=== PATIENT | male | born 1935 | race Caucasian/White ===

== ENCOUNTER → 2017-04-04 | Outpatient (CLI) | payer MEDICARE ==
[~2017-04-04] VITALS: Ht 180.3 cm; Wt 95.3 kg
[~2017-04-04] MED LIST: ASPIRIN81 M2 PO; ATENOLOL 50MG T50 MG PO; ATORVASTATIN CA40 MG PO; COD LIVER OIL1 EAC4 PO; D3 + K2 DOTS 11 EACH PO; FISH OIL 1,001000 M2 PO; METFORMIN HCL500 MG PO; OMEPRAZOLE 20 M20 M1 PO; PROZAC20 MG PO; SIMVASTATIN40 MG PO; UNICOMPLEX M TA1 TA1 PO
[2017-04-04 09:01] VITALS: BP 135/70
[2017-04-04 09:01] LABS: HEMATOCRIT 44.6 % (42.0-52.0); HEMOGLOBIN 15.2 gm/dL (14.0-18.0); MCH 30.3 pg (26.0-34.0); MCV 89.2 fL (80.0-100.0); MPV 8.6 fl. (7.2-11.1); RDW-CV 13.7 % (10.5-14.5); WBC 11.4 thou/uL (4.0-11.0)
[2017-04-04 09:09] LABS: APTT 28.7 Seconds (25.0-31.3); INR 1.1; PROTIME 10.3 Seconds (9.20-11.50)
[2017-04-04 09:56] LABS: ALBUMIN 3.4 g/dL (3.4-5.0); ALKALINE PHOSPHATASE 60 U/L (46-116); ANION GAP 6 mmol/L (7-16); BUN 22 mg/dL (7-18); CALCIUM 8.6 mg/dL (8.5-10.1); CHLORIDE 104 mmol/L (98-107); CHOLESTEROL 133 mg/dL (<200); CO2 26 mmol/L (21-32); CREATININE 1.1 mg/dL (0.6-1.3); GLUCOSE 145 mg/dL (70-99); HDL CHOLESTEROL 33 mg/dL (>40); LDL CHOLESTEROL 51 mg/dL (<100); POTASSIUM 4.4 mmol/L (3.5-5.1); SGOT 22 U/L (15-37); SGPT 32 U/L (30-65); SODIUM 136 mmol/L (136-145); TOTAL BILIRUBIN 0.5 mg/dL (<0.1-1.0); TOTAL PROTEIN 6.9 g/dL (6.4-8.2); TRIGLYCERIDE 248 mg/dL (<150); VLDL 50 mg/dL (<40)
[2017-04-04 09:58] LABS: SERUM ASSESSMENT Clear
[2017-04-04 10:40] VITALS: BP 122/71
[2017-04-04 11:31] VITALS: BP 122/71
[2017-04-04 12:09] VITALS: BP 122/71
[2017-04-04 12:32] VITALS: BP 122/71
--- NOTE | 2017-04-04 13:22 | H ---
[address] [address] HISTORY AND PHYSICAL Name: ANALIA SMART Room: [facility]#: [id number] Admission: 04/04/17 Attend Phys: Kvng Durham MD Discharge: Date of : 37 Report #: [id number] THIS REPORT FOR: //name// CC: Kip Rivas INDICATION: Dyspnea and abnormal CV functional study. HISTORY OF PRESENT ILLNESS: The patient is a very pleasant 81-year-old gentleman with history of coronary artery disease. By catheterization remotely this was felt to be nonocclusive. Recently, he has been having increasing dyspnea on exertion, requiring him to stop and rest. A stress test in the interim suggested basal lateral ischemia. He has preserved left ventricular systolic function by this noninvasive study. He is being brought to the hospital today for elective left heart catheterization and coronary angiography. CARDIAC RISK FACTORS: Include hypertension and hyperlipidemia for which he is on medication. PAST MEDICAL HISTORY: 1. Coronary artery disease by catheterization in 2009. 2. Hypertension. 3. Hyperlipidemia. 4. Type 2 diabetes mellitus. PAST SURGICAL HISTORY: 1. Coccygectomy. 2. Rotator cuff surgery bilaterally. 3. Sinus surgery. 4. Total knee arthroplasty. FAMILY HISTORY: The patient's father had heart disease at an older age. The patient's mother had hypertension and heart disease at an older age. SOCIAL HISTORY: The patient is a former smoker, but quit remotely. He does not drink alcohol. ALLERGIES: MORPHINE and PENICILLIN. CURRENT MEDICATIONS: Aspirin 81 mg daily, atenolol 50 mg one-half tablet b.i.d., vitamin D3 1000 units daily, glimepiride 2 mg daily, metformin 500 mg b.i.d., multivitamin 1 tablet daily, omega 3 fatty acid 1200 mg daily, omeprazole 40 mg daily, Zocor 40 mg daily. REVIEW OF SYSTEMS: GENERAL: He denies convulsions, seizures or focal paralysis. In [place], [place] [address] HISTORY AND PHYSICAL Name: ANALIA SMART Room: [facility]#: [id number] Admission: 04/04/17 Attend Phys: Kvng Durham MD Discharge: Date of : 37 Report #: [id number] is no unexplained weight loss or fever. RESPIRATORY: He is without cough, shortness of breath. He does have dyspnea. He denies underlying lung disease. CARDIOVASCULAR: He denies chest pain. He is not having palpitations. He is without orthopnea. He denies edema. He denies murmur. GASTROINTESTINAL: No nausea, vomiting, hematemesis, melena, hematochezia, jaundice, or hepatitis. GENITOURINARY: No dysuria or hematuria. HEMATOLOGIC AND LYMPHATIC: He denies any history of anemia, bleeding disorder or cancer. ALLERGY AND IMMUNOLOGIC: He has medical allergies outlined above. PSYCHIATRIC: No depression or anxiety. MUSCULOSKELETAL: He has arthritis without connective tissue disease. SKIN: No recent rashes, hives or skin conditions. EYES: He does wear glasses. He has no acute loss in vision. EARS, NOSE, MOUTH, THROAT: He denies epistaxis. He has decreased hearing. PHYSICAL EXAMINATION: VITAL SIGNS: Stable. Blood pressure 132/68, pulse is 75 and regular. GENERAL: This is a pleasant, moderately obese gentleman in no distress. Mood and affect appropriate. HEENT: The patient wears glasses. Extraocular muscles intact. Mucous membranes are moist. NECK: Shows no jugular venous distention. There are no carotid bruits. CHEST: Reveals clear lung chiang without wheezes, rales or rhonchi. CARDIOVASCULAR: Reveals regular rhythm with no murmur or gallop. ABDOMEN: Reveals normal bowel sounds. The abdomen is soft and nontender. EXTREMITIES: Shows no clubbing, cyanosis or edema. Peripheral pulses 2+ and easily palpable. SKIN: Warm and dry. IMPRESSION AND RECOMMENDATIONS: 1. Progressive dyspnea with abnormal CV functional study. The patient is being brought in for left heart catheterization and coronary angiography to evaluate extent of underlying coronary artery disease. 2. Coronary artery disease. Continue daily aspirin. 3. Hypertension. The patient's blood pressure adequately controlled on current regimen of atenolol. 4. Mixed hyperlipidemia. Continue simvastatin. The patient has been at goal on this dose. 5. Type 2 diabetes mellitus. The patient to hold metformin [place] [address] HISTORY AND PHYSICAL Name: SMARTANALIA Room: [facility]#: [id number] Admission: 04/04/17 Attend Phys: Kvng Durham MD Discharge: Date of : 37 Report #: [id number] and resume in 48 hours. We will continue glimepiride at current dose. Otherwise, per primary physician. <ELECTRONICALLY SIGNED> By: Kvng Durham MD, FACC 04/04/17 1322 0949 1017[facility] MD, FACC /nt
--- NOTE | 2017-04-04 20:08 | CARD ---
[address] [address] CARDIAC CATH REPORT Name: ANALIA SMART Room: [facility]#: [id number] Admission: 04/04/17 Attend Phys: Kvng Durham MD Discharge: Date of : 37 Report #: [id number] THIS REPORT FOR: //name// APPROVED REPORT Patient Details Patient Status: Out-Patient Room #: The patient is a 81 year-old male Event Personnel Kvng Durham Federal Air Marshal, Joyce Goode RN RN, Pravin Mason (Robin) [place] James Monitor Procedure Narrative A Slender Glidesheath sheath was inserted into the . Coronary angiography was performed using coronary diagnostic catheters. The right coronary system was accessed and visualized with a 3DRC 5fr catheter. The left coronary system was accessed and visualized with a DCR: [place] 4.0 5fr catheter. The left ventricle was accessed and visualized with a PC: Angled Pig 5fr catheter. The patient tolerated the procedure well and there were no complications associated with the procedure. Intraoperative Conscious Sedation Sedation start time: 1005 Case end Time: 1025 Fentanyl 50 mcg Versed 2 mg Fluoro Time: 7.4 minutes Dose: DAP 417047 cGycm2 1520 mGy Contrast Type and Amount: Visipaque 135 ml Coronary Angiography The patient's coronary anatomy is right dominant. Diagnostic Cath Left Main Normal. LAD 30% narrowed proximally, 40% narrowed in its midportion. Diagonal 1 40% proximal narrowing. Diagonal 2 Normal. Circumflex 10% narrowing proximally. Normal its mid and distal portion. OM1 50% proximal narrowing. Right Coronary 10% narrowing in its proximal, [place] [address] CARDIAC CATH REPORT Name: ANALIA SMART Room: [facility]#: [id number] Admission: 04/04/17 Attend Phys: Kvng Durham MD Discharge: Date of : 37 Report #: [id number] portions. R PDA 10% narrowing proximally. RPLV 10% narrowing in its midportion. Left Ventriculography The left ventricular ejection fraction is estimated to be 60%. Left ventricular wall motion abnormalities are not present. Hemodynamics The aortic pressure is 97/56 mmHg with a mean of 76 mmHg. The left ventricular pressure is 92/0 mmHg with a mean of mmHg. The left ventricular end diastolic pressure is 6 mmHg. Conclusion 1. Nonocclusive coronary artery disease as outlined above area 2. Normal left ventricular systolic function. 3. Normal left ventricular end-diastolic pressure. Recommendations 1. Continue aggressive risk factor modification. <ELECTRONICALLY SIGNED> By: Kvng Durham MD, [facility] 04/04/172006 06 Cecilia Durham MD, FACC /INF
== END | disposition home or self-care (01) ==
LOC: M.CL 08:25
PROVIDERS: Internal Medicine Cardiovascular Disease
DX: I25.10 Atherosclerotic heart disease of native coronary artery without angina pectoris (principal); I10 Essential (primary) hypertension; E11.9 Type 2 diabetes mellitus without complications; E78.5 Hyperlipidemia, unspecified; Z98.890 Other specified postprocedural states; Z79.899 Other long term (current) drug therapy; Z79.82 Long term (current) use of aspirin; Z87.891 Personal history of nicotine dependence; Z82.49 Family history of ischemic heart disease and other diseases of the circulatory system; Z88.0 Allergy status to penicillin; Z88.6 Allergy status to analgesic agent; Z79.01 Long term (current) use of anticoagulants

== ENCOUNTER → 2018-04-24 | Outpatient (CLI) | payer MEDICARE ==
[~2018-04-24] VITALS: Ht 180.3 cm; Wt 96.2 kg
[2018-04-24] VITALS (7 sets, daily range): BP systolic 121–142; BP diastolic 58–75
[~2018-04-24] MED LIST changes: +AMARYL2 MG PO; +ATENOLOL 25 MG25 M1 PO; +ATENOLOL 50MG T50 M1 PO
[2018-04-24 08:53] LABS: HEMOGLOBIN 14.2 gm/dL (14.0-18.0); MCH 30.8 pg (26.0-34.0); MCHC 33.9 g/dL (28.0-37.0); MCV 90.8 fL (80.0-100.0); MPV 8.9 fl. (7.2-11.1); RBC 4.62 mil/uL (4.50-6.00); WBC 11.6 thou/uL (4.0-11.0)
[2018-04-24 09:02] LABS: APTT 30.6 Seconds (25.0-31.3); PROTIME 10.1 Seconds (9.20-11.50)
[2018-04-24 09:14] LABS: ALBUMIN 3.7 g/dL (3.4-5.0); ALKALINE PHOSPHATASE 59 U/L (46-116); ANION GAP 8 mmol/L (7-16); BUN 22 mg/dL (7-18); CALCIUM 9.1 mg/dL (8.5-10.1); CHLORIDE 100 mmol/L (98-107); CHOLESTEROL 157 mg/dL (<200); CO2 29 mmol/L (21-32); CREATININE 1.2 mg/dL (0.6-1.3); GLUCOSE 170 mg/dL (70-99); HDL CHOLESTEROL 42 mg/dL (>40); LDL CHOLESTEROL 70 mg/dL (<100); POTASSIUM 3.8 mmol/L (3.5-5.1); SERUM ASSESSMENT Clear; SGOT 17 U/L (15-37); SGPT 31 U/L (30-65); SODIUM 137 mmol/L (136-145); TC:HDL 3.7 Ratio (Not establshd); TOTAL BILIRUBIN 0.5 mg/dL (<0.1-1.0); TOTAL PROTEIN 7.6 g/dL (6.4-8.2); TRIGLYCERIDE 229 mg/dL (<150); VLDL 46 mg/dL (<40)
--- NOTE | 2018-04-24 13:00 | EKG ---
[place] [address] ELECTROCARDIOGRAM REPORT Name: BERRYANALIA SACHINLINDA Room: [facility]#: [id number] Admission: 04/24/18 Attend Phys: Kvng Durham MD Discharge: Date of : 37 Report #: [id number] THIS REPORT FOR: //name// [facility] Test Date: 2018-04-24 Test Time: 09:24:33 Pat Name: ANALIA SMART Department: Room: Gender: M Network Technical Analyst: : 1935 Requested By: Kvng Durham Order Number: [id number] Jean Carlos NAYAK: Ben Dykes Measurements Intervals [place] Rate: 65 P: 17 SD: 152 QRS: -57 QRSD: 105 T: -38 QT: 414 QTc: 431 Interpretive Statements Sinus rhythm Left anterior fascicular block Abnormal R-wave progression, early transition Borderline repolarization abnormality Baseline wander in lead(s) I,III,aVL No previous ECG available for comparison Electronically Signed On 04-24-2018 12:59:55 WEBSPHERE ARCHITECT by Ben Dykes [email or web address] <ELECTRONICALLY SIGNED> By: Ben Dykes MD, [facility] 04/24/18 1259 0924 0924 Ben Dykes MD, [facility] /EPI
--- NOTE | 2018-05-01 17:41 | CARD ---
[address] [address] CARDIAC CATH REPORT Name: ANALIA SMART Room: [facility] ROSAMARIA Brewer#: [id number] Admission: 04/24/18 Attend Phys: Kvng Durham MD Discharge: Date of : 37 Report #: [id number] THIS REPORT FOR: //name// APPROVED REPORT Study performed: 04/24/2018 11:33:42 Patient Details Patient Status: Out-Patient Room #: Event Personnel Cardilogist Kvng Durham, Mecca Miguel RN, Axel WELLS, Soo Hankins RTR Procedures Performed Left heart catheterization and coronary angiography., Left ventriculography. Procedure Narrative The patient was brought electively to the Cardiac Catheterization Laboratory and was prepped and draped in a sterile manner. The right wrist was infiltrated with 2% Lidocaine subcutaneous anesthesia. A 6Fr Slender Glidesheath sheath was inserted into the right radial artery. Coronary angiography was performed using coronary diagnostic catheters. The right coronary system was accessed and visualized with a Diagnostic 6Fr 4.0 [place] catheter. The left coronary system was accessed and visualized with a Diagnostic 6Fr 4.0 [place] catheter. The left ventricle was accessed and visualized with a Diagnostic 6Fr angled pigtail catheter. Hemostasis was obtained with manual pressure following sheath removal without any complications. The patient tolerated the procedure well and there were no complications associated with the procedure. Intraoperative Conscious Sedation Sedation start time: 1139 Case end Time: 1152 Fentanyl 50.0 mcg Versed 2.0 mg Fluoro Time: 4.3 minutes Dose: DAP 33161 cGycm2 102 mGy Contrast Type and Amount: 100 Coronary Angiography The patient's coronary [place] [address] CARDIAC CATH REPORT Name: ANALIA SMART Room: [facility]#: [id number] Admission: 04/24/18 Attend Phys: Kvng Durham MD Discharge: Date of : 37 Report #: [id number] Diagnostic Cath Left Main Normal LAD 10% plaquing proximally. 40% plaquing in the midportion. 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 The distal vessel is free of significant disease. Diagonal 1 10% plaque proximally. Diagonal 2 Normal. Circumflex 10% plaquing proximally. OM1 Sujata branch vessel 10% plaque proximally prior to the branch. Right Coronary Large in caliber 20% plaque proximally in the midportion and distally. R PDA Normal. RPLV Normal Sujata branch. Left Ventriculography The left ventricle is normal in size with normal contractility. The left ventricular ejection fraction is estimated to be 60-65%. Hemodynamics The left ventricular pressure is 132/81 mmHg with a mean of 104 mmHg. The left ventricular end diastolic pressure is 15 mmHg. There was no gradient across the aortic valve upon pullback. Conclusion 1. Mild nonocclusive coronary artery disease as outlined above. 2. Normal left ventricular end-diastolic pressure. 3. Normal left ventricular systolic function by ventriculography. Recommendations 1. Continue current medical management and aggressive risk factor modification. <ELECTRONICALLY SIGNED> By: Kvng Durham MD, FACC 05/01/18 [id number] 1740Mictomas Durham MD, FACC /INF
== END | disposition home or self-care (01) ==
LOC: M.CL 08:12
PROVIDERS: Internal Medicine Cardiovascular Disease
DX: I25.10 Atherosclerotic heart disease of native coronary artery without angina pectoris (principal); I10 Essential (primary) hypertension; E78.5 Hyperlipidemia, unspecified; E11.9 Type 2 diabetes mellitus without complications; Z79.82 Long term (current) use of aspirin; Z79.899 Other long term (current) drug therapy; Z79.01 Long term (current) use of anticoagulants; Z98.890 Other specified postprocedural states; Z88.8 Allergy status to other drugs, medicaments and biological substances

== ENCOUNTER 2018-06-14 14:51 | Inpatient (IN) | payer MEDICARE ==
[~2018-06-14] VITALS: Ht 180.3 cm; Wt 100.7 kg
[~2018-06-14 14:51] MED LIST changes: -ATENOLOL 25 MG25 M1 PO
[2018-06-14 18:25] VITALS: BP 184/86
[2018-06-14] MEDS ORDERED: ATENOLOL 25 MG25 M1 PO (18:42)
[2018-06-14 19:15] VITALS: BP 132/71; BP 141/74
--- NOTE | 2018-06-14 19:30 | NUR ---
PT AOX4, UP AD SUJIT, O2 SAT 90'S RA.IV ACCESS INTACT. LAST BM 06/14/18. PT FOR ACCU CHECK PT. DIRECT ADMIT FROM [facility]. ADMISSION ASSESSMENT DONE. ORIENTED, GET SITUATED TO ROOM. VSS, ASSESSMENT CHARTED. CALL LIGHT WITHIN REACH. GIVE REPORT TO LORNI AMAYA. WILL CONTINUE TO MONITOR
--- NOTE | 2018-06-14 19:38 | NUR ---
I HAVE REVIEWED AND AGREE WITH THE CHARTING AND NOTE OF JORDAN Concepcion RN ON 06/14/18
[2018-06-14 20:02] LABS: HEMATOCRIT 40.8 % (42.0-52.0); HEMOGLOBIN 13.7 gm/dL (14.0-18.0); MCH 31.4 pg (26.0-34.0); MCHC 33.5 g/dL (28.0-37.0); MCV 93.6 fL (80.0-100.0); RBC 4.36 mil/uL (4.50-6.00); RDW-CV 13.7 % (10.5-14.5); WBC 7.8 thou/uL (4.0-11.0)
[2018-06-14 20:32] LABS: ANION GAP 11 mmol/L (7-16); BUN 19 mg/dL (7-18); CALCIUM 9.1 mg/dL (8.5-10.1); CHLORIDE 105 mmol/L (98-107); CO2 25 mmol/L (21-32); CREATININE 1.1 mg/dL (0.6-1.3); GLUCOSE 142 mg/dL (70-99); MAGNESIUM 1.5 mg/dL (1.8-2.4); POTASSIUM 4.1 mmol/L (3.5-5.1); SODIUM 141 mmol/L (136-145); TROPONIN-I LEVEL <0.06 ng/mL (<0.06)
[2018-06-15] VITALS (7 sets, daily range): BP systolic 117–166; BP diastolic 56–82
--- NOTE | 2018-06-15 02:21 | NUR ---
INITIAL ASSESSMENT COMPLETED CHARTED. VSS. TRACING SR - BIGEMINY ON MONITOR. PT HR WILL OCCASIONALLY SLOW TO THE 40'S AND WILL REBOUND BACK TO THE 70-80'S RANGE QUICKLY. PT DENIES PAIN OR SOA CURRENTLY AND AT TIME OF ASSESSMENT. PT UP ADLIB WITH STEADY GAIT. NO NEW CONCERNS. HOURLY ROUNDING IN PLACE. CLWR.
--- NOTE | 2018-06-15 11:32 | NUR ---
CM completed initial assessment to discuss d/c plan. pt A&Ox4. present at time of discussion. pt active & independent w/ADLs. NO DME. NO hx w/SNF. No hx w/HH. Pt has good family support. No anticipated needs at this time. CM to remain available to assist as needed.
--- NOTE | 2018-06-15 19:04 | NUR ---
06/15 Days: Patient being discharged home. Discharge completed. Instructions given. Questions answered. Vitals stable. Patient feels good. Hospitalist informed and in agreeance with Cardiology with discharge.
--- NOTE | 2018-06-18 13:43 | CON ---
[address] [address] CONSULTATION Name: BERRYANALIA ESTRADA Room: [address] IN M.R.#: [id number] Admission: 06/14/18 Attend Phys: Maribel Watkins Discharge: 06/15/18 Date of : 37 Report #: [id number] THIS REPORT FOR: //name// CC: Kip Ulrich DO Karlos Lazo DATE OF SERVICE: 06/15/2018 INDICATION: Symptomatic bradycardia. HISTORY OF PRESENT ILLNESS: The patient is a very pleasant 82-year-old gentleman with history of nonocclusive coronary artery disease by catheterization. His risk factors include dyslipidemia, hypertension and type 2 diabetes mellitus. He has been having progressive dyspnea and weakness for some time. Yesterday, he was at outside hospital and noted to have a pulse rate of 40. In this setting, he was having significant fatigue and dyspnea. The patient was transferred to [facility] for further evaluation. The patient continues to have episodes of symptomatic bradycardia. He is not having any chest pain. He is without other cardiac complaint at this time. PAST MEDICAL HISTORY: 1. Coronary artery disease. 2. Hypertension. 3. Hyperlipidemia. 4. Type 2 diabetes mellitus. PAST SURGICAL HISTORY: 1. Coccygectomy. 2. Rotator cuff surgery bilaterally. 3. Sinus surgery. 4. Total knee arthroplasty. FAMILY HISTORY: The patient's father had heart disease at an older age. The patient's mother had hypertension and heart disease at an older age. SOCIAL HISTORY: The patient quit smoking many years ago. He does not drink alcohol. ALLERGIES: MORPHINE AND PENICILLIN. HOME MEDICATIONS: Aspirin 81 mg daily, atenolol 50 mg daily, vitamin D 1000 mg daily, fish oil 1000 mg daily, Prozac 20 mg daily, Amaryl 2 mg daily, metformin 500 mg b.i.d., multivitamin 1 tablet daily, omeprazole 40 mg daily, probiotic one tablet daily, simvastatin [place] [address] CONSULTATION Name: ANALIA SMART Room: [address] IN M.R.#: [id number] Admission: 06/14/18 Attend Phys: Maribel Watkins Discharge: 06/15/18 Date of : 37 Report #: [id number] REVIEW OF SYSTEMS: Positive for fatigue, dyspnea, joint pain. Medical allergies as outlined above. Otherwise, 14-point review of systems was unremarkable. PHYSICAL EXAMINATION: VITAL SIGNS: Blood pressure 132/86, pulse 40. GENERAL: This is a pleasant gentleman in no distress. Mood and affect appropriate. HEENT: The patient is wearing glasses. Extraocular muscles intact. Mucous membranes are moist. NECK: Shows no jugular venous distention. No carotid bruits. CHEST: Reveals clear lung chiang without wheezes or rales. CARDIOVASCULAR: Reveals a regular rhythm that is slow. I do not appreciate gallop or murmur. ABDOMEN: Reveals normal bowel sounds. The abdomen is soft, nontender. EXTREMITIES: Shows no edema. Peripheral pulses 2+ and palpable. SKIN: Dry. LABORATORY DATA: EKG on admission shows a sinus rhythm with PVCs in a pattern of bigeminy. No acute ST or T-wave abnormalities are noted. Labs are reviewed. Electrolytes within normal limits. BUN 19, creatinine 1.1, serum glucose 142. Troponin less than 0.06. IMPRESSION AND RECOMMENDATIONS: 1. Symptomatic bradycardia. Plan, permanent pacemaker placement today. 2. Coronary artery disease, presently stable. He is not having angina. Continue daily aspirin. 3. Hyperlipidemia. Continue current statin agent. 4. Diabetes per primary physician. <ELECTRONICALLY SIGNED> By: Kvng Durham MD, FACC 06/18/18 1343 1000 [id number] Cent[facility]omas [facility] MD, FACC /nt
--- NOTE | 2018-06-28 16:17 | CARD ---
[address] [address] CARDIAC CATH REPORT Name: ANALIA SMART [facility]: [facility] M.R.#: [id number] Admission: 06/14/18 Attend Phys: Maribel Watkins Discharge: 06/15/18 Date of : 37 Report #: [id number] THIS REPORT FOR: //name// ADDENDUM APPROVED REPORT Study performed: 06/15/2018 15:43:00 Patient Status: In-Patient Room #: 229 Event Personnel: Kvng Durham Chicken Buyer, Katherine Bello Regulator Tester, Pravin Mason (R) Monitor, Axel Hernandez CARE TRANSITION COORDINATOR Scrub Exam: Insertion of Dual Chamber Permanent Pacemaker Indications: 2:1 AV Block The patient is a 82 year-old male with a history of Second degree AV block. Conscious Sedation Start time: 1630 End Time: 1706 Fentanyl 50 mcg Versed 2 mg Implanted Devices: Biotronik Eluna 8 DRT pro-MRI, model #550784, serial #[id number] dual-chamber pacing generator. Biotronik Solia S, model #233901, serial #[id number] ventricular lead. Biotronik Solia S 53, model #407665, serial #[id number] atrial lead. Procedure The patient underwent informed consent. We discussed the details of the procedure including the risks, which include, but not limited to bleeding, infection, vascular damage, cardiac perforation, and pneumothorax. He understood these risks and was willing to proceed. As such, he was brought to the EP/Cardiac Catheterization laboratory in a fasting and sedated state and prepped and draped in a sterile fashion, received IV antibiotics prior to initiation of the procedure and a venogram was performed showing patency of the left axillary vein. The patient underwent conscious sedation, with no related complications. The patient was brought to the EP/Cardiac Catheterization laboratory and the left chest and shoulder were prepped and draped in a sterile manner. During this case, Fluoroscopy and visipaque 10cc [place] [address] CARDIAC CATH REPORT Name: ANALIA SMART Room: [address] IN [facility].#: [id number] Admission: 06/14/18 Attend Phys: Maribel Watkins Discharge: 06/15/18 Date of : 37 Report #: [id number] The left subclavian region was infiltrated with 2% Lidocaine subcutaneous anesthesia. A transverse incision was made in the left upper chest cavity. The subcutaneous pocket was formed via blunt dissection. Percutaneous venous access was achieved and an introducer sheath was inserted into the left Subclavian vein. Through the introducer sheaths the atrial and ventricular lead wires were positioned in the right atrial appendage and right ventricular apex respectively. Capturing and sensing thresholds were verified. Electrode Parameters P Wave: 3.20 mV R Wave: 9.70 mV Atrial Threshold: 1.2 V at 0.40 ms Ventricular Threshold: 0.6 V at 0.40 ms Atrial Resistance: 526 ohms Ventricular Resistance: 760 ohms Mode DDD/CLS. Lower pacing rate 60 bpm. Upper tracking rate 130 bpm. Dual Chamber The atrial and ventricular leads were then secured using 0 silk sutures. The subcutaneous pocket was irrigated with ancef antibiotic solution.The atrial and ventricular leads were attached to the appropriate receptacles on the pulse generator and set screws firmly tightened to insure adequate contact and stability. The lead and pulse generator were placed into the subcutaneous pocket. Sharp and sponge counts were confirmed to be correct. At this time the pocket was closed subcutaneously with a 2.0 Vicryl and the skin was closed with a 4.0 Vicryl. The operative site was dressed in sterile fashion with steri strips and the patient was transferred to the floor in stable condition. Complications The patient tolerated the procedure well and there were no complications associated with the procedure. Conclusion 1. Second degre AV block. 2. Successful placement of a dual-chamber pacemaker with atrial and ventricular [place] [address] CARDIAC CATH REPORT Name: ANALIA SMART Room: [facility] IN M.R.#: [id number] Admission: 06/14/18 Attend Phys: Maribel Watkins Discharge: 06/15/18 Date of : 37 Report #: [id number] 1. Follow-up site check in one week. 2. Follow-up device interrogation one month. <ELECTRONICALLY SIGNED> By: Kvng Durham MD, FACC 06/28/18 1616 [id number] 1616Michaeleda Durham MD, FACC /INF
== END 2018-06-15 19:12 | disposition home or self-care (01) | DRG 244 ==
LOC: M.2W 14:51
PROVIDERS: ADMIT Internal Medicine
PROC: 0JH606Z Insertion of Pacemaker, Dual Chamber into Chest Subcutaneous Tissue and Fascia, Open Approach (ICD-10-PCS; principal; 2018-06-15)
PROC: 02H63JZ Insertion of Pacemaker Lead into Right Atrium, Percutaneous Approach (ICD-10-PCS; principal; 2018-06-15)
PROC: 02HK3JZ Insertion of Pacemaker Lead into Right Ventricle, Percutaneous Approach (ICD-10-PCS; principal; 2018-06-15)
DX: R00.1 Bradycardia, unspecified (principal); I25.10 Atherosclerotic heart disease of native coronary artery without angina pectoris; Z96.652 Presence of left artificial knee joint; E83.42 Hypomagnesemia; I10 Essential (primary) hypertension; E78.5 Hyperlipidemia, unspecified; E11.9 Type 2 diabetes mellitus without complications; Z82.49 Family history of ischemic heart disease and other diseases of the circulatory system; Z87.891 Personal history of nicotine dependence; Z88.6 Allergy status to analgesic agent; Z88.0 Allergy status to penicillin; Z85.46 Personal history of malignant neoplasm of prostate

== ENCOUNTER 2018-12-31 08:36 | Inpatient (IN) | payer MEDICARE ==
[2018-12-31] VITALS (15 sets, daily range): BP systolic 92–126; BP diastolic 55–99
[~2018-12-31] VITALS: Ht 180.3 cm; Wt 97.6 kg
--- NOTE | ~2018-12-31 | H ---
[address] [address] HISTORY AND PHYSICAL Name: ANALIA SMART Room: [address] IN M.R.#: [id number] Admission: 12/31/18 Attend Phys: Fredis Brown MD, F Discharge: 01/02/19 Date of : 37 Report #: [id number] THIS REPORT FOR: //name// Please refer to the History and Physical performed in the physician's office. By: [id number] Records Staff JORGE /PAPA
[~2018-12-31 08:36] MED LIST changes: +ATENOLOL 25 MG25 M1 PO
[2018-12-31 09:58] LABS: HEMATOCRIT 41.1 % (42.0-52.0); HEMOGLOBIN 13.9 gm/dL (14.0-18.0); MCH 30.8 pg (26.0-34.0); MCHC 33.9 g/dL (28.0-37.0); MCV 90.9 fL (80.0-100.0); MPV 8.2 fl. (7.2-11.1); RBC 4.52 mil/uL (4.50-6.00); RDW-CV 12.9 % (10.5-14.5)
[2018-12-31 10:06] LABS: CREATININE 1.2 mg/dL (0.6-1.3); POTASSIUM 4.4 mmol/L (3.5-5.1)
[2018-12-31] MEDS ORDERED: TOPROL XL100 MG (10:15)
[2018-12-31] MEDS ORDERED: XARELTO20 MG PO (10:27)
[2018-12-31] MEDS ORDERED: EFFEXOR XR75 MG (10:34)
--- NOTE | 2018-12-31 15:35 | NUR ---
PT RECEIVED FROM [employer]LE[employer] SYSTEMS MODELER AT 1430, PT HAD CARDIOVERSION. PT AOX4, UP SBA, O2 SAT 90'S RA. PT DENIES PAIN. TRACING SR ON TELE. PT HAS PACEMAKER. ADMISSION ASSESSMENT CHARTED. GET SITUATED TO ROOM, ON 2 GRAM SODIUM DIET. LAST BM TODAY. VSS, CALL LIGHT WITHIN REACH, CALL LIGHT WITHIN REACH, WILL CONTINUE TO MONITOR.
[2019-01-01] VITALS (7 sets, daily range): BP systolic 113–138; BP diastolic 67–75
--- NOTE | 2019-01-01 05:01 | NUR ---
ASSUMED CARE OF PT AT 1900. PT IS ALERT AND ORIENTED. VSS. PERRLA. NO COMPLAINTS OF PAIN. PT IS IN SINUS RYTHM ON THE TELEMETRY. PT IS RESTING COMFORTABLY IN BED. RESPIRATIONS ARE EVEN AND NONLABORED. WILL CONTINUE TO MONITOR PT.
--- NOTE | 2019-01-01 11:16 | EKG ---
[place] [address] ELECTROCARDIOGRAM REPORT Name: ANALIA SMART Room: [place] [address] ADM IN M.R.#: [id number] Admission: 12/31/18 Attend Phys: Fredis Brown MD, F Discharge: Date of : 37 Report #: [id number] THIS REPORT FOR: //name// [facility] Test Date: 2019-01-01 Test Time: 09:26:15 Pat Name: ANALIA SMART Department: Room: [place] [address] Gender: M Retort Loader: : 1935 Requested By: Fredis Brown Order Number: [id number] Jean Carlos MD: Kvng Durham Measurements Intervals [place] Rate: 79 P: -2 DE: 161 QRS: -37 QRSD: 102 T: -38 QT: 383 QTc: 440 Interpretive Statements Sinus rhythm Incomplete RBBB and LAFB Abnormal R-wave progression, early transition Compared to ECG 04/24/2018 09:24:33 Incomplete right bundle-branch block now present Incomplete right bundle-branch block now present Electronically Signed On 01-01-2019 11:16:29 COAL HIKER by Kvng Durham [email or web address] <ELECTRONICALLY SIGNED> By: Kvng Durham MD, FACC 01/01/19 1116 0926 0926 Kvng Durham MD, FAC /EPI
--- NOTE | 2019-01-01 11:34 | NUR ---
ASSUMED PT CARE AT 0800, AOX4, UP AD SUJIT, O2 SAT 90'S RA. TRACING SR ON TELE, PT HAS PACEMAKER. PT DENIES PAIN, STATE HE FEELS BETTER. VSS, AM ASSESSMENT CHARTED, MEDS GIVEN PER MAR, WILL CONTINUE TO MONITOR.
--- NOTE | 2019-01-01 15:27 | NUR ---
MET WITH PT TO DISCUSS HOME SITUAITON/DC PLANNING. PT LIVES WITH . HE IS INDEPENDENT AND ACTIVE. USES NO EQUIPMENT AND HASN'T HAD HH OR BEEN TO SNF. PLANS TO RETURN HOME AT DC. NO NEEDS ID'D. WILL FOLLOW
--- NOTE | 2019-01-01 16:16 | CARD ---
[address] [address] CARDIAC CATH REPORT Name: ANALIA SMART Room: [place] [address] ADM IN M.R.#: [id number] Admission: 12/31/18 Attend Phys: Fredis Brown MD, F Discharge: Date of : 39 Report #: [id number] THIS REPORT FOR: //name// CC: Fredis Ulrich DO DATE OF SERVICE: 12/31/2018 TITLE OF PROCEDURE: Direct current cardioversion of atrial flutter to normal sinus rhythm. INDICATIONS: The patient had a history of sick sinus syndrome and had a previous pacemaker inserted. He was found to have evidence of atrial fibrillation, had been placed on flecainide and Xarelto. The patient recently presented to the office with atrial flutter. It was decided to discontinue the flecainide. PROCEDURE: The patient was brought to the cardiac catheterization lab in a fasting state after having received Xarelto. Hands free patches were applied in the anterior and posterior location. Informed consent was obtained by discussing indications, alternatives and risks of the procedure. The patient agreed to proceed. The patient was given moderate sedation by administering a total of 5 mg of Versed and 50 mg of fentanyl intravenously in divided doses. The patient was then cardioverted with 200 joules of direct current energy. He converted from atrial flutter to normal sinus rhythm. The patient tolerated the procedure well. IMPRESSION: Successful direct current cardioversion of atrial flutter to normal sinus rhythm. <ELECTRONICALLY SIGNED> By: Fredis Brown MD, FACC 01/01/19 1616 1310 [id number] Aravind Brown MD, FACC /nt
[2019-01-02] VITALS: BP 111/65
--- NOTE | 2019-01-02 03:43 | NUR ---
ASSUMED CARE OF PT AT 1900. PT IS ALERT AND ORIENTED. VSS. PERRLA. NO COMPLAINTS OF PAIN. PT IS UP AD SUJIT. PT IS IN SINUS RYTHM ON THE TELEMETRY. PT IS RESTING COMFORTABLY IN BED. RESPIRATIONS ARE EVEN AND NONLABORED. WILL CONTINUE TO MONITOR PT.
[2019-01-02 04:00] VITALS: BP 117/65
[2019-01-02 07:20] VITALS: BP 135/74
--- NOTE | 2019-01-02 09:56 | EKG ---
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[id number] Requested By: Fredis Brown Order Number: [id number] Reading MD: Fredis Brown Measurements Intervals [place] Rate: 70 P: 31 PA: 145 QRS: -55 QRSD: 110 T: -39 QT: 439 QTc: 474 Interpretive Statements Sinus rhythm Left anterior fascicular block Abnormal R-wave progression, early transition Borderline repolarization abnormality Compared to ECG 01/01/2019 09:26:15 no change Electronically Signed On 01-02-2019 9:55:54 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
[2019-01-02] MEDS ORDERED: SORINE 80 MG TA80 MG PO (12:24)
--- NOTE | 2019-01-02 13:19 | NUR ---
PT IV REMOVED INTACT WITH A MINIMAL BLEEDING COMPLICATION REQUIRING EXTRA TIME HOLDING PRESSURE DUE TO PT ANTIPLATELET MEDICATIONS. PRESSURE HELD AND BLEEDING STOPPED WITH NO FURTHER COMPLICATION, COFLEX WAS PLACED ON SITE AND PT HAD NO OTHER CONCERNS. PT AND VERBALIZED NO QUESTIONS REGARDING DISCHARGE ONCE THIS RN CALLED THEIR PHARMACY AND VERIFIED PRICING SOTOLOL. PT TAKEN OUT VIA WC WITH HOSPITAL STAFF. WILL SIGN OFF AT THIS TIME
--- NOTE | 2019-01-02 16:38 | D ---
[address] [address] DISCHARGE SUMMARY Name: ANALIA SMART Room: [address] IN M.R.#: [id number] Admission: 12/31/18 Attend Phys: Fredis Brown MD, F Discharge: 01/02/19 Date of : 39 Report #: [id number] THIS REPORT FOR: //name// CC: Fredis Ulrich DO DATE OF SERVICE: 01/02/2019 DISCHARGE DIAGNOSES: 1. Atrial flutter. 2. Coronary artery disease. 3. Sick sinus syndrome. 4. Diabetes. 5. Hypertension. CONSULTANTS: None. PROCEDURES: Direct current cardioversion of atrial flutter. HISTORY OF PRESENT ILLNESS: The patient is an 83-year-old white male who was brought to the outpatient department to undergo direct current cardioversion. The patient had a previous heart catheterization in 2018 that showed only moderate coronary artery disease with a 50% narrowing in the marginal branch with an ejection fraction of 60%. He was noted to have symptomatic sinus bradycardia and Dr. Durham implanted a permanent dual chamber Biotronik pacemaker a year ago. Apparently, after interrogating the pacemaker, he was noted to have episodes of atrial fibrillation. Dr. Durham started him on Toprol, flecainide and Xarelto. Recently, he noticed that his heart rate was elevated and he had noticed some fatigue. He had no shortness of breath or chest pain. He made an appointment to see me in the office last week when Dr. Durham was out of town and he was noted to be in what appeared to be an atrial flutter with an increased ventricular response rate. I recommended he be admitted to the hospital for attempts at cardioversion. PAST MEDICAL HISTORY: Otherwise significant for rotator cuff surgery, knee surgery, hypertension, diabetes, hyperlipidemia. MEDICATIONS ON ADMISSION: Consisted of glimepiride, metformin, metoprolol, omeprazole, Xarelto, simvastatin, flecainide, Effexor. ALLERGIES: HE HAD AN ALLERGY TO MORPHINE AND PENICILLIN G. PHYSICAL EXAMINATION: VITAL SIGNS: On admission, his blood pressure is 130/70, his pulse is 130. HEENT: [place] [address] DISCHARGE SUMMARY Name: SMARTANALIA SEAN Room: [address]#: [id number] Admission: 12/31/18 Attend Phys: Fredis Brown MD, F Discharge: 01/02/19 Date of : 39 Report #: [id number] CHEST: Clear to auscultation. CARDIAC: Regular rate and rhythm. ABDOMEN: Soft. EXTREMITIES: Had no edema. SKIN: Warm and dry. LABORATORY DATA: His ECG that was done in the office 3 days ago showed a narrow complex tachycardia at 130 beats per minute with a sawtooth pattern consistent with atrial flutter, 2:1 ventricular response rate and a right bundle branch block. The patient had had recent lab work done at Dr. Ulrich's office last week including hemoglobin of 14.2. His BUN 28, creatinine 1.2. Urinalysis was negative for protein. TSH is 1.8. His liver function studies were normal. PSA was 0. The patient's cardiac catheterization in the past had shown normal ejection fraction. HOSPITAL COURSE: The patient was brought to the outpatient department in the fasting state after having received metoprolol and Xarelto. The patient had been off of flecainide for 3 days. After achieving moderate sedation, I then performed direct current cardioversion using 200 joules of energy. He converted from atrial flutter to sinus rhythm. The patient remained in sinus rhythm throughout the hospitalization, occasionally had atrial paced beats. Prior to discharge, he is ambulating, had no further complaints. At the time of discharge, he had a blood pressure of 130/70, pulse 70, he was afebrile and he was in sinus rhythm. ECG showed no QT prolongation. He was discharged to return to care of Dr. Kip Ulrich for routine medical care. He is scheduled to see my partner, Dr. Durham in the Cardiology Clinic in 1 month. He was to contact my office if he had increasing shortness of breath, palpitations or bleeding. He was discharged on his home medications to include Amaryl, metformin. He was taken off metoprolol and switched to sotalol 80 mg twice a day, omeprazole, Xarelto 20 mg a day, simvastatin 40 mg a day, Effexor and he was taken off of flecainide. <ELECTRONICALLY SIGNED> By: Fredis Brown MD, [facility] 01/02/19 1638 1203 [id number] Brown MD, FAC /nt
== END 2019-01-02 13:30 | disposition home or self-care (01) | DRG 309 ==
LOC: M.TBA-CV 08:36 → M.2W 08:36
PROVIDERS: ADMIT Internal Medicine Cardiovascular Disease
PROC: 5A2204Z Restoration of Cardiac Rhythm, Single (ICD-10-PCS; principal; 2018-12-31)
DX: I48.92 Unspecified atrial flutter (principal); D68.69 Other thrombophilia; I49.5 Sick sinus syndrome; I25.10 Atherosclerotic heart disease of native coronary artery without angina pectoris; E11.9 Type 2 diabetes mellitus without complications; I10 Essential (primary) hypertension; E78.5 Hyperlipidemia, unspecified; I48.0 Paroxysmal atrial fibrillation; E78.2 Mixed hyperlipidemia; Z96.659 Presence of unspecified artificial knee joint; Z79.84 Long term (current) use of oral hypoglycemic drugs; Z79.899 Other long term (current) drug therapy; Z95.0 Presence of cardiac pacemaker; Z79.01 Long term (current) use of anticoagulants; Z88.0 Allergy status to penicillin; Z88.6 Allergy status to analgesic agent; Z82.49 Family history of ischemic heart disease and other diseases of the circulatory system; Z82.3 Family history of stroke; Z87.891 Personal history of nicotine dependence